=== PATIENT | male | born 1995 | race Two or more races ===

== ENCOUNTER 2017-09-07 19:08 | Emergency (ER) | payer MEDICAID ==
--- NOTE | 2017-09-07 19:50 | NUR ---
Pt left without being seen
--- NOTE | 2017-09-07 19:51 | NUR ---
Correction: Pt left without being triaged
== END 2017-09-07 19:50 | disposition left against medical advice (07) ==
LOC: ER 19:10
DX: Z53.21 Procedure and treatment not carried out due to patient leaving prior to being seen by health care provider (principal)